=== PATIENT | female | born 1950 | race Caucasian/White ===

== ENCOUNTER 2016-09-04 18:10 | Emergency (ER) | payer MEDICARE, OTHER ==
[~2016-09-04] VITALS: Ht 160 cm; Wt 89.0 kg
[~2016-09-04 18:10] MED LIST: AMIO200T2 PO; ATOR10TA65 PO; BUDE6HFA INHALATION; CELE200C PO; DILT180C55 PO; DIVA500T7 PO; ESOM40CA PO; FLUO20CA38 PO; FURO40TA4 PO; HYDR-762 PO; KETO120S2 TOP; METF500T4 PO; MONT10TA24 PO; NIT4 SL; NITR100C73 PO; OXYB5TAB7 PO; POTA10TA37 PO; PRED20TA PO; PREG50CA PO; RIVA3CAP2 PO; VALS160T20 PO
[2016-09-04 18:16] VITALS: Ht 160 cm; Wt 89.0 kg
[2016-09-04] MEDS ORDERED: IPRATROPIUM (NEB) 0.5 MG/2.5 ML AMP NEB STA (18:40)
[2016-09-04] MEDS ORDERED: predniSONE 20 MG TAB PO STA (18:40)
[2016-09-04] MEDS ORDERED: ALBUTEROL 0.083% (NEB) 2.5 MG/3 ML AMP NEB STA (18:40)
[2016-09-04] MEDS ORDERED: AZITHROMYCIN 250 MG TAB PO ONE (19:00)
[2016-09-04] MEDS ORDERED: LEVOFLOXACIN 750 MG TABLET PO ONE (19:00)
[2016-09-04] MEDS ORDERED: ALBU18HF INHALATION (19:44)
[2016-09-04] MEDS ORDERED: PRED20TA PO (19:44)
[2016-09-04] MEDS ORDERED: LEVO750T25 PO (19:44)
[2016-09-04 19:55] VITALS: BP 116/55; PULSE 87; RESP 20; TEMP 98.1
[2016-09-04] MEDS: IBUPROFEN 800 MG TAB PO ONE ×2 (20:06→20:07)
--- NOTE | 2016-09-04 20:30 | ERD ---
ER Documentation Chief Complaint Date/Time DATE: 09/04/16 TIME: 20:27 Chief Complaint SOB,CP, HX COPD HPI Patient is a 66-year-old female with hypertension, diabetes, and COPD who presents with shortness of breath and chest pain. She has had the symptoms for 1 day. She has cough and congestion and was coughing up yellow sputum. She is speaking in full sentences. She said that she had chills today. Her primary doctor is Dr. Boggs. Review of the emergency department information exchange shows visits to 3 separate emergency departments. ROS All systems reviewed and are negative except as per history of present illness. Medications Home Meds Active Scripts Albuterol Sulfate* (Ventolin HFA*) 18 Gm Hfa.aer.ad, 2 PUFF INHALATION Q4H, #1 INHALER Prov:VASQUEZ HO MD 09/04/16 Levofloxacin* (Levaquin*) 750 Mg Tablet, 750 MG PO DAILY for 4 Days, TAB Prov:VASQUEZ HO MD 09/04/16 Prednisone* (Prednisone*) 20 Mg Tab, 60 MG PO DAILY for 4 Days, TAB Prov:VASUQEZ HO MD 09/04/16 Prednisone* (Prednisone*) 20 Mg Tab, 40 MG PO DAILY for 4 Days, TAB Prov:SAYDA CLIFFORD DO 11/17/15 Reported Medications Budesonide-Formoterol Fumarate* (Symbicort*) 160-4.5 Hfa.aer.ad, 2 PUFF INHALATION BID, #1 EACH 11/17/15 Montelukast Sodium* (Montelukast Sodium*) 10 Mg Tablet, 10 MG PO QHS, #30 TAB 11/17/15 Ketoconazole* (Ketoconazole*) 2% - 120 Ml Shampoo, 1 APPLIC TOP DAILY, EA WASH HAIR/SCALP AND RINSE OFF 11/17/15 Diltiazem Hcl (Dilt-Xr) 180 Mg Capsule.cr, 180 MG PO BID, #30 CAP 11/17/15 Nitrofurantoin Macrocrystal* (Nitrofurantoin Macrocrystal*) 100 Mg Capsule, 100 MG PO HS, CAP 11/17/15 Hydrocodone Bit-Acetaminophen* ([place]*) 10-325 Mg Tablet, 1 TAB PO Q4H Y for PAIN, TAB 02/06/15 Fluoxetine Hcl* (Prozac*) 20 Mg Capsule, 20 MG PO DAILY, CAP 02/06/15 Oxybutynin Chloride* (Ditropan*) 5 Mg Tab, 5 MG PO BID, TAB 02/06/15 Pregabalin* (Lyrica*) 50 Mg Capsule, 50 MG PO DAILY, CAP 02/06/15 Atorvastatin Calcium (Atorvastatin Calcium) 10 Mg Tab, 10 MG PO HS, TAB 02/06/15 Amiodarone Hcl* (Amiodarone Hcl*) 200 Mg Tablet, 200 MG PO DAILY, TAB 02/06/15 Divalproex Sodium* (Depakote*) 500 Mg Tablet.dr, 500 MG PO QID, TAB 02/06/15 Esomeprazole Mag Trihydrate (Nexium) 40 Mg Capsule.dr, 40 MG PO DAILY, CAP 02/06/15 Celecoxib* (Celebrex*) 200 Mg Capsule, 200 MG PO DAILY, CAP 02/06/15 Potassium Chloride* (K-Dur*) 10 Meq Tab.prt.sr, 10 MEQ PO DAILY, TAB 02/06/15 Metformin* (Glucophage*) 500 Mg Tab, 500 MG PO BID, TAB 02/06/15 Nitroglycerin* (Nitrostat*) 0.4 Mg Tab.subl, 0.4 MG SL Q5MIN Y for CHEST PAIN, BOTTLE 02/06/15 Rivastigmine Tartrate* (Exelon*) 3 Mg Capsule, 3 MG PO BID, CAP 02/06/15 Valsartan* (Diovan*) 160 Mg Tablet, 160 MG PO DAILY, TAB 02/06/15 Furosemide* (Furosemide*) 40 Mg Tablet, 40 MG PO DAILY, TAB 02/06/15 Allergies Allergies: Coded Allergies: Penicillins (Verified Allergy, Severe, 11/17/15) SEVERE HIVES carbamazepine (Verified Allergy, Severe, 11/17/15) erythromycin base (Verified Allergy, Severe, HIVES, 11/17/15) methylprednisolone (Unverified Allergy, Severe, TINGLING THROUGHOUT BODY, 11/17/15) RE-ENTERED UNCODED ALLERGY CODED phenytoin (Verified Allergy, Severe, 05/15/14) severe hives all over the body quetiapine (Verified Allergy, Severe, 05/15/14) severe rash from head to toe Uncoded Allergies: miacins (Allergy, Severe, 09/03/13) RASHES AROUND THE MOUTH PMhx/Soc History of Surgery: Yes (hysterectomy ) Anesthesia Reaction: No Hx Neurological Disorder: Yes (seizure, demenita ) Hx Respiratory Disorders: Yes (COPD, Asthma ) Hx Cardiac Disorders: Yes (HTN ) Hx Psychiatric Problems: Yes (seizure, anxiety ) Hx Miscellaneous Medical Probl: No Hx Alcohol Use: No Hx Substance Use: No Hx Tobacco Use: Yes (10-15 CIGS A DAY.) Smoking Status: Current every day smoker FmHx Family History: No diabetes Physical Exam Vitals Vital Signs Date Time Temp Pulse Resp B/P Pulse Ox O2 Delivery O2 Flow Rate FiO2 09/04/16 19:55 98.1 87 20 116/55 98 Room Air 09/04/16 19:13 72 22 95 21 09/04/16 18:16 97.4 69 18 183/91 94 Physical Exam Const: Wheezing Head: Atraumatic Eyes: Normal Conjunctiva ENT: Normal External Ears, Nose and Mouth. Neck: Full range of motion..~ No meningismus. Resp: Diffuse expiratory wheezing but is speaking in full sentences without obvious respiratory distress Cardio: Regular rate and rhythm, no murmurs Abd: Soft, non tender, non distended. Normal bowel sounds Skin: No petechiae or rashes Back: No midline or flank tenderness Ext: No cyanosis, or edema Neur: Awake and alert Psych: Normal Mood and Affect Results 24 hrs Current Medications Medications (Trade) Dose Ordered Sig/Max Route PRN Reason Start Time Stop Time Status Last Admin Dose Admin Albuterol (Proventil 0.083% (Neb)) 5 mg ONCE STAT NEB 09/04/16 18:40 09/04/16 18:42 DC 09/04/16 19:06 Ipratropium [place] (Atrovent 0.02% (Neb)) 0.5 mg ONCE STAT NEB 09/04/16 18:40 09/04/16 18:42 DC 09/04/16 19:06 Prednisone (Prednisone) 60 mg ONCE STAT PO 09/04/16 18:40 09/04/16 18:42 DC 09/04/16 18:46 Azithromycin (Zithromax) 500 mg ONCE ONCE PO 09/04/16 19:00 09/04/16 19:00 DC Levofloxacin (Levaquin) 750 mg ONCE ONCE PO 09/04/16 19:00 09/04/16 19:01 DC 09/04/16 18:53 Ibuprofen (Motrin) 800 mg ONCE ONCE PO 09/04/16 20:30 09/04/16 20:30 DC Procedures/[facility] Patient is a 66-year-old female with COPD who presents with shortness of breath and wheezing. She appears to have an acute COPD exacerbation but is speaking in full sentences and her O2 saturation is greater than 90% without oxygen. She was treated with albuterol, Atrovent, prednisone, and Levaquin. I do not believe she requires further workup or admission to the hospital at this time. This point I doubt acute coronary syndrome, pneumonia, pneumothorax, pulmonary embolism, or aortic dissection. I believe outpatient management is appropriate. She should follow-up with her primary doctor within 24-48 hours. She will be given a prescription for prednisone for 4 more days as well as Levaquin for 4 more days. She will also be given a prescription for Ventolin. Departure Diagnosis: Primary Impression: COPD exacerbation Condition: Fair Patient Instructions: Copd Flare Additional Instructions: Call your primary care doctor TOMORROW for an appointment during the next 1-2 days.See the doctor sooner or return here if your condition worsens before your appointment time. VASQUEZ HO MD Sep 04, 2016 20:30
== END 2016-09-04 20:18 | disposition home or self-care (01) ==
LOC: FTE 18:10
DX: J44.1 Chronic obstructive pulmonary disease with (acute) exacerbation (principal); I10 Essential (primary) hypertension; E11.9 Type 2 diabetes mellitus without complications; F17.210 Nicotine dependence, cigarettes, uncomplicated; Z79.84 Long term (current) use of oral hypoglycemic drugs
CPT/HCPCS: 94664; 99284; J7512

== ENCOUNTER 2016-11-04 09:06 | Emergency (ER) | payer MEDICARE, OTHER ==
[~2016-11-04] VITALS: Ht 160 cm; Wt 75.0 kg
[~2016-11-04 09:06] MED LIST changes: +ALBU18HF INHALATION; +LEVO750T25 PO
[2016-11-04 09:13] VITALS: Ht 160 cm; Wt 75.0 kg
[2016-11-04] MEDS ORDERED: LEVALBUTEROL (NEB) 1.25 MG/0.5 ML AMP INH STA (09:35)
[2016-11-04 10:00] LABS: ADD SCAN DIFF NO
[2016-11-04 10:04] LABS: BASOPHILS % 0.5 % (0.0-2.0); EOSINOPHILS # 0.1 10^3/ul (0.0-0.5); EOSINOPHILS % 1.8 % (0.0-7.0); HEMATOCRIT 42.7 % (37.0-47.0); HEMOGLOBIN 14.2 g/dl (12.0-16.0); LYMPHOCYTES # 3.2 10^3/ul (0.8-2.9); LYMPHOCYTES % 41.4 % (15.0-51.0); MEAN CORPUSCULAR HGB CONC 33.3 g/dl (32.0-37.0); MEAN CORPUSCULAR VOLUME 93.2 fl (82.0-101.0); MEAN PLATELET VOLUME 9.8 fl (7.4-10.4); MONOCYTE # 0.5 10^3/ul (0.3-0.9); MONOCYTES % 6.3 % (0.0-11.0); NEUTROPHIL # 3.7 10^3/ul (1.6-7.5); NEUTROPHILS % 49.3 % (39.0-77.0); PLATELET COUNT 218 10^3/UL (140-415); RED BLOOD COUNT 4.58 10^6/ul (4.20-5.40); RED CELL DISTRIBUTION WIDTH 13.9 % (11.5-14.5); WHITE BLOOD COUNT 7.6 10^3/ul (4.8-10.8)
--- NOTE | 2016-11-04 10:07 | ERA ---
ER Documentation Chief Complaint Date/Time DATE: 11/04/16 TIME: 10:06 Chief Complaint SOB X2 WEEKS, AUDIBLE WHEEZING NOTED. SPO2 97% ON ROOM AIR. HPI This is a 66-year-old female who has a history of COPD and atrial fibrillation who is here for COPD exacerbation sent by Dr. Estrada. She was noted to have A. fib with RVR with a heart rate of 104 in the office according to the patient. She says she has had no chest pain she has a chronic cough and has chronic breathing problems due to her COPD. Patient states she has chronic cough for the past 3 weeks. She has been on a dose of Levaquin only. She takes for nebulizer treatments a day does not take steroids because they make her vomit ROS All systems reviewed and are negative except as per history of present illness. Medications Home Meds Active Scripts Albuterol Sulfate* (Ventolin HFA*) 18 Gm Hfa.aer.ad, 2 PUFF INHALATION Q4H, #1 INHALER Prov:VASQUEZ HO MD 09/04/16 Levofloxacin* (Levaquin*) 750 Mg Tablet, 750 MG PO DAILY for 4 Days, TAB Prov:VASQUEZ HO MD 09/04/16 Prednisone* (Prednisone*) 20 Mg Tab, 60 MG PO DAILY for 4 Days, TAB Prov:VASQUEZ HO MD 09/04/16 Prednisone* (Prednisone*) 20 Mg Tab, 40 MG PO DAILY for 4 Days, TAB Prov:SAYDA CLIFFORD DO 11/17/15 Reported Medications Isosorbide Mononitrate* (Isosorbide Mononitrate*) 60 Mg Tab.er.24h, 60 MG PO DAILY, TAB 11/04/16 Ranolazine* (Ranexa*) 500 Mg Tab.sr.12h, 500 MG PO Q12, TAB 11/04/16 Budesonide-Formoterol Fumarate* (Symbicort*) 160-4.5 Hfa.aer.ad, 2 PUFF INHALATION BID, #1 EACH 11/17/15 Montelukast Sodium* (Montelukast Sodium*) 10 Mg Tablet, 10 MG PO QHS, #30 TAB 11/17/15 Nitrofurantoin Macrocrystal* (Nitrofurantoin Macrocrystal*) 100 Mg Capsule, 100 MG PO HS, CAP 11/17/15 Hydrocodone Bit-Acetaminophen* ([place]*) 10-325 Mg Tablet, 1 TAB PO Q4H Y for PAIN, TAB 02/06/15 Fluoxetine Hcl* (Prozac*) 20 Mg Capsule, 20 MG PO DAILY, CAP 02/06/15 Oxybutynin Chloride* (Ditropan*) 5 Mg Tab, 5 MG PO BID, TAB 02/06/15 Pregabalin* (Lyrica*) 50 Mg Capsule, 50 MG PO DAILY, CAP 02/06/15 Atorvastatin Calcium (Atorvastatin Calcium) 10 Mg Tab, 10 MG PO HS, TAB 02/06/15 Amiodarone Hcl* (Amiodarone Hcl*) 200 Mg Tablet, 200 MG PO DAILY, TAB 02/06/15 Esomeprazole Mag Trihydrate (Nexium) 40 Mg Capsule.dr, 40 MG PO DAILY, CAP 02/06/15 Celecoxib* (Celebrex*) 200 Mg Capsule, 200 MG PO DAILY, CAP 02/06/15 Potassium Chloride* (K-Dur*) 10 Meq Tab.prt.sr, 10 MEQ PO DAILY, TAB 02/06/15 Metformin* (Glucophage*) 500 Mg Tab, 500 MG PO BID, TAB 02/06/15 Nitroglycerin* (Nitrostat*) 0.4 Mg Tab.subl, 0.4 MG SL Q5MIN Y for CHEST PAIN, BOTTLE 02/06/15 Rivastigmine Tartrate* (Exelon*) 3 Mg Capsule, 3 MG PO BID, CAP 02/06/15 Valsartan* (Diovan*) 160 Mg Tablet, 160 MG PO DAILY, TAB 02/06/15 Furosemide* (Furosemide*) 40 Mg Tablet, 40 MG PO DAILY, TAB 02/06/15 Discontinued Reported Medications Ketoconazole* (Ketoconazole*) 2% - 120 Ml Shampoo, 1 APPLIC TOP DAILY, EA WASH HAIR/SCALP AND RINSE OFF 11/17/15 Diltiazem Hcl (Dilt-Xr) 180 Mg Capsule.cr, 180 MG PO BID, #30 CAP 11/17/15 Divalproex Sodium* (Depakote*) 500 Mg Tablet.dr, 500 MG PO QID, TAB 02/06/15 Allergies Allergies: Coded Allergies: Penicillins (Verified Allergy, Severe, 11/17/15) SEVERE HIVES carbamazepine (Verified Allergy, Severe, 11/17/15) erythromycin base (Verified Allergy, Severe, HIVES, 11/17/15) methylprednisolone (Unverified Allergy, Severe, TINGLING THROUGHOUT BODY, 11/17/15) RE-ENTERED UNCODED ALLERGY CODED phenytoin (Verified Allergy, Severe, 05/15/14) severe hives all over the body quetiapine (Verified Allergy, Severe, 05/15/14) severe rash from head to toe Uncoded Allergies: miacins (Allergy, Severe, 09/03/13) RASHES AROUND THE MOUTH PMhx/Soc History of Surgery: No Anesthesia Reaction: No Hx Neurological Disorder: No Hx Respiratory Disorders: No Hx Cardiac Disorders: No Hx Psychiatric Problems: Yes (seizure, anxiety ) Hx Miscellaneous Medical Probl: Yes (COPD) Hx Alcohol Use: No Hx Substance Use: No Hx Tobacco Use: No Smoking Status: Never smoker FmHx Family History: No coronary disease Physical Exam Vitals Vital Signs Date Time Temp Pulse Resp B/P Pulse Ox O2 Delivery O2 Flow Rate FiO2 11/04/16 10:16 75 20 96 21 11/04/16 10:01 Nasal Cannula 2 11/04/16 09:18 Nasal Cannula 11/04/16 09:13 98.1 90 24 98/59 97 Physical Exam Const: Well-developed, well-nourished Head: Atraumatic, normocephalic Eyes: Normal Conjunctiva, PERRLA, EOMI, normal sclera, no nystagmus ENT: Normal External Ears, Nose and Mouth, moist mucus membranes. Neck: Full range of motion. No meningismus, no lymphadenopathy. Resp: [No increased work of breathing, there is diffuse expiratory rhonchi and some slight wheezing with good air movement Cardio: Regular rate and rhythm, no murmurs, S1 S2 present Abd: Soft, non tender x 4, non distended. Normal bowel sounds, no guarding or rebound, no pulsitile abdominal masses or bruits Skin: No petechiae or rashes, no ecchymosis , no maculopapular rash Back: No midline or flank tenderness Ext: No cyanosis, or edema, FROM x 4, normal inspection, neurovascularly intact x 4 Neur: Awake and alert, STR 5/5 x 4, sensation intact x 4, no focal findings, cerebellum intact Psych: Normal Mood and Affect Result Diagram: 5/22/17 0930 11/04/16 0930 Results 24 hrs Laboratory Tests Test 11/04/16 09:30 White Blood Count 7.610^3/ul Red Blood Count 4.5810^6/ul Hemoglobin 14.2g/dl Hematocrit 42.7% Mean Corpuscular Volume 93.2fl Mean Corpuscular Hemoglobin 31.0pg Mean Corpuscular Hemoglobin Concent 33.3g/dl Red Cell Distribution Width 13.9% Platelet Count 48215^3/UL Mean Platelet Volume 9.8fl Neutrophils % 49.3% Lymphocytes % 41.4% Monocytes % 6.3% Eosinophils % 1.8% Basophils % 0.5% Nucleated Red Blood Cells % 0.0/100WBC Neutrophils # 3.710^3/ul Lymphocytes # 3.210^3/ul Monocytes # 0.510^3/ul Eosinophils # 0.110^3/ul Basophils # 0.010^3/ul Nucleated Red Blood Cells # 0.010^3/ul Sodium Level 142mmol/L Potassium Level 3.5mmol/L Chloride Level 103mmol/L Carbon Dioxide Level 26mmol/L Anion Gap 17 Blood Urea Nitrogen 13mg/dl Creatinine 0.58mg/dl Glucose Level 108mg/dl Calcium Level 9.0mg/dl Troponin I < 0.012ng/ml Current Medications Medications (Trade) Dose Ordered Sig/Max Route PRN Reason Start Time Stop Time Status Last Admin Dose Admin Levalbuterol (Xopenex Neb) 5 mg ONCE STAT INH 11/04/16 09:35 11/04/16 09:38 DC 11/04/16 10:04 Diphenhydramine HCl (Benadryl) 25 mg ONCE STAT IV 11/04/16 11:51 11/04/16 11:52 DC Methylprednisolone Sodium Succinate (Solu-Medrol) 125 mg ONCE STAT IV 11/04/16 11:51 11/04/16 11:52 DC Procedures/MDM EKG: Rate/Rhythm: Atrial flutter with variable AV block, left axis deviation QRS, ST, QT: NORMAL LA, QRS, QT] Impression: Atrial flutter] ROCEDURE: Chest x-ray CLINICAL INDICATION: Asthma exacerbation TECHNIQUE: Chest single view COMPARISON: 11/17/2015 FINDINGS: The heart is normal in size. The pulmonary vessels are normal in caliber. The lungs are clear. The costophrenic angles are sharp. The visualized bony thorax is unremarkable. IMPRESSION: No acute cardiopulmonary disease. RPTAT: HH .Clovis Callahan MD, Date Time Electronically viewed and signed by .Clovis Callahan MD, on 11/04/2016 11:38 .W/ CC: CHAO IBRAHIM DO Patient received nebulizer treatments that she is feeling better. Her room air sats are 98%. She has better air movement now with less wheezing and coarse lung sounds. Again she states she is feeling better. We will give her a dose of Benadryl and Solu-Medrol and discharged home Patient states she is chronically in A. fib or atrial flutter Departure Diagnosis: Primary Impression: COPD exacerbation Condition: Stable CHAO IBRAHIM DO November 04, 2016 10:07
[2016-11-04 10:27] LABS: CHLORIDE 103 mmol/L (97-110); POTASSIUM 3.5 mmol/L (3.5-5.1); SODIUM 142 mmol/L (135-144)
[2016-11-04 10:30] LABS: ANION GAP 17 (8-16); BLOOD UREA NITROGEN 13 mg/dl (7-20); CARBON DIOXIDE 26 mmol/L (21-31); CREATININE 0.58 mg/dl (0.44-1.00); GLUCOSE 108 mg/dl (70-220)
[2016-11-04 10:44] LABS: TROPONIN-I < 0.012 ng/ml (0.00-0.12)
[2016-11-04] MEDS ORDERED: RANO500T2 PO (10:57)
[2016-11-04] MEDS ORDERED: ISOS60TA PO (10:57)
--- NOTE | 2016-11-04 11:38 | RADRPT ---
PROCEDURE: Chest x-ray CLINICAL INDICATION: Asthma exacerbation TECHNIQUE: Chest single view COMPARISON: 11/17/2015 FINDINGS: The heart is normal in size. The pulmonary vessels are normal in caliber. The lungs are clear. Th e costophrenic angles are sharp. The visualized bony thorax is unremarkable. IMPRESSION: No acute cardiopulmonary disease. RPTAT: HH .Clovis Callahan MD, Date Time Electronically viewed and signed by .Clovis Callahan MD, on 11/04/2016 11:38 .W/
[2016-11-04] MEDS ORDERED: METHYLPREDNISOLONE 125 MG INJ IV STA (11:51)
[2016-11-04] MEDS ORDERED: DIPHENHYDRAMINE 50 MG INJ IV STA (11:51)
[2016-11-04] MEDS ORDERED: HYDR15SO8 PO (12:02)
[2016-11-04] MEDS ORDERED: ONDA4TAB14 PO (12:02)
[2016-11-04 12:39] VITALS: BP 125/80; PULSE 114; RESP 20; TEMP 98.3
== END 2016-11-04 12:40 | disposition home or self-care (01) ==
LOC: E/R 09:06
DX: J44.1 Chronic obstructive pulmonary disease with (acute) exacerbation (principal); R40.2142 Coma scale, eyes open, spontaneous, at arrival to emergency department; R40.2252 Coma scale, best verbal response, oriented, at arrival to emergency department; R40.2362 Coma scale, best motor response, obeys commands, at arrival to emergency department
CPT/HCPCS: 71010; 80048; 84484; 85025; 93005; 94644; 96374; 96375; 99285; J1200; J2930

== ENCOUNTER 2017-06-24 13:09 | Emergency (ER) | END 2017-06-24 18:03 | disposition left against medical advice (07) ==

== ENCOUNTER → 2017-06-25 | Outpatient (CLI) | END | disposition home or self-care (01) ==

== ENCOUNTER → 2017-08-20 | Outpatient (CLI) | END | disposition home or self-care (01) ==

== ENCOUNTER → 2017-09-05 | Outpatient (CLI) | END | disposition home or self-care (01) ==

== ENCOUNTER 2017-09-17 14:08 | Emergency (ER) | END 2017-09-17 18:58 | disposition left against medical advice (07) ==

== ENCOUNTER → 2017-11-28 | Outpatient (CLI) | END | disposition home or self-care (01) ==

== ENCOUNTER 2018-05-20 16:29 | Emergency (ER) | END 2018-05-20 17:20 | disposition left against medical advice (07) ==

== ENCOUNTER 2018-08-06 18:42 | Emergency (ER) | payer SELFPAY ==
[~2018-08-06] VITALS: Ht 160 cm; Wt 98.3 kg
[~2018-08-06 18:42] MED LIST changes: -ALBU18HF INHALATION; -AMIO200T2 PO; +AMIO200T4 PO; -ATOR10TA65 PO; -BUDE6HFA INHALATION; -CELE200C PO; +DILT120C77 PO; -DILT180C55 PO; -DIVA500T7 PO; +HYDR-3980 PO; -HYDR-762 PO; +ISOS60TA PO; -KETO120S2 TOP; -LEVO750T25 PO; +METF-849 PO; -METF500T4 PO; -NIT4 SL; +NITR0.4T39 SL; -NITR100C73 PO; -OXYB5TAB7 PO; -PRED20TA PO
[2018-08-06 18:44] VITALS: BP 129/57; PULSE 77; RESP 19; Ht 160 cm; Wt 98.3 kg
== END 2018-08-06 20:26 | disposition left against medical advice (07) ==
LOC: E/R 18:42
DX: Z53.21 Procedure and treatment not carried out due to patient leaving prior to being seen by health care provider (principal)

== ENCOUNTER 2018-08-15 14:11 | Emergency (ER) | payer MEDICARE, OTHER ==
[~2018-08-15] VITALS: Ht 157.5 cm; Wt 100.0 kg
[2018-08-15 14:23] VITALS: Ht 157.5 cm; Wt 100.0 kg
[2018-08-15 16:55] VITALS: BP 132/79; PULSE 80; RESP 18
[2018-08-15] MEDS ORDERED: ALBUTEROL 0.5% (NEB) 2.5 MG/0.5 ML AMP INH STA (16:56)
[2018-08-15] MEDS ORDERED: IPRATROPIUM (NEB) 0.5 MG/2.5 ML AMP INH STA (16:56)
[2018-08-15] MEDS ORDERED: predniSONE 20 MG TAB PO STA (16:56)
[2018-08-15] MEDS ORDERED: ACETAMINOPHEN 325 MG TAB PO ONE (17:00)
--- NOTE | 2018-08-15 17:12 | ERD ---
ER Documentation Chief Complaint Chief Complaint SOB WHEEZING. ABLE TO SPEAK FULL SENTENCES. HPI This is a 68-year-old female with a past medical history of hypertension, diabetes, CHF, atrial fibrillation, COPD, active daily tobacco use, anxiety, fibromyalgia, partial blindness, chronic vertigo who is presenting primarily for increased shortness of breath. The patient does have shortness of breath and wheezing at baseline, but her symptoms have been getting worse over the last 2-3 days. The patient endorses a congested productive cough of clear sputum. She also endorses increased dyspnea on exertion. She denies any chest pain or chest tightness or pleuritic pain. She has no nausea or vomiting. She has no lightheadedness. She has not had any diaphoresis. She does not feel sick otherwise. She does not endorse any other cold or flulike symptoms. She has not had any myalgias. She has not had any fever or chills. The patient has a secondary complaint of left knee pain after a fall this afternoon. The patient endorses chronic vertigo and dizziness for which she uses a walker. However, the patient's caregiver did not bring the walker when they went out today. The patient lost her balance and had a mechanical fall landing on her left knee. The patient was able to get up and is currently ambulatory. She does have an abrasion to the left knee and endorses tenderness with range of motion, though she is able to range the knee fully. There is no other trauma or injury. The patient did not hit her head. She did not lose consciousness. The patient has had no headache or vision changes. The patient does not endorse neck or back pain. The patient denies abdominal pain. The patient denies changes to bowel movements or urination. The patient has had no focal deficits. The patient has had no weakness or numbness or tingling to the face or extremities. ROS All systems reviewed and are negative except as per history of present illness. Medications Home Meds Reported Medications Hydrocodone/Acetaminophen (Chestnut 10-325 Tablet) 1 Each Tablet, 1 EACH PO QID PRN for PAIN, TAB 06/24/17 Diltiazem Hcl* (Cardizem CD*) 120 Mg Cap.sr.24h, 120 MG PO DAILY, #30 CAP 06/24/17 Pregabalin* (Lyrica*) 50 Mg Capsule, 50 MG PO BID, CAP 06/24/17 Amiodarone Hcl* (Amiodarone Hcl*) 200 Mg Tablet, 200 MG PO BID, #60 TAB 06/24/17 Isosorbide Mononitrate* (Isosorbide Mononitrate*) 60 Mg Tab.er.24h, 60 MG PO DAILY, TAB 11/04/16 Montelukast Sodium* (Montelukast Sodium*) 10 Mg Tablet, 10 MG PO QHS, #30 TAB 11/17/15 Fluoxetine Hcl* (Prozac*) 20 Mg Capsule, 20 MG PO DAILY, CAP 02/06/15 Esomeprazole Mag Trihydrate (Nexium) 40 Mg Capsule.dr, 40 MG PO DAILY, CAP 02/06/15 Potassium Chloride* (K-Dur*) 10 Meq Tab.prt.sr, 10 MEQ PO DAILY, TAB 02/06/15 Metformin* (Glucophage*) 500 Mg Tab, 500 MG PO BID, TAB 02/06/15 Nitroglycerin* (Nitrostat*) 0.4 Mg Tab.subl, 0.4 MG SL Q5MIN PRN for CHEST PAIN, BOTTLE 02/06/15 Rivastigmine Tartrate* (Exelon*) 3 Mg Capsule, 3 MG PO BID, CAP 02/06/15 Valsartan* (Diovan*) 160 Mg Tablet, 160 MG PO DAILY, TAB 02/06/15 Furosemide* (Furosemide*) 40 Mg Tablet, 40 MG PO DAILY, TAB 02/06/15 Allergies Allergies: Coded Allergies: Penicillins (Verified Allergy, Severe, 09/17/17) SEVERE HIVES carbamazepine (Verified Allergy, Severe, 09/17/17) erythromycin base (Verified Allergy, Severe, HIVES, 09/17/17) methylprednisolone (Unverified Allergy, Severe, TINGLING THROUGHOUT BODY, 09/17/17) RE-ENTERED UNCODED ALLERGY CODED phenytoin (Verified Allergy, Severe, 09/17/17) severe hives all over the body quetiapine (Verified Allergy, Severe, 09/17/17) severe rash from head to toe Uncoded Allergies: miacins (Allergy, Severe, 09/03/13) RASHES AROUND THE MOUTH PMhx/Soc History of Surgery: No Anesthesia Reaction: No Hx Neurological Disorder: Yes (fibromyalgia) Hx Respiratory Disorders: Yes (COPD) Hx Cardiac Disorders: Yes (Hypertension, diabetes, CHF, atrial fibrillation) Hx Psychiatric Problems: Yes (seizure, anxiety ) Hx Miscellaneous Medical Probl: Yes (Partial blindness) Hx Alcohol Use: No Hx Substance Use: No Hx Tobacco Use: No Smoking Status: Never smoker FmHx Family History: diabetes Physical Exam Vitals Vital Signs Date Temp Pulse Resp B/P (MAP) Pulse Ox O2 O2 Flow FiO2 Time Delivery Rate 08/15/18 75 20 95 21 17:09 08/15/18 80 18 132/79 97 Room Air 16:55 (96) 08/15/18 98.0 86 18 158/88 94 14:23 (111) Physical Exam Const: No apparent distress, well-developed, well-nourished Head: Normocephalic, Atraumatic Eyes: Normal Conjunctiva. Extraocular movements intact. Pupils equal, round and reactive to light ENT: Normal External Ears, Nose and Mouth. Neck: Full range of motion. No meningismus. Resp: Bilateral inspiratory and expiratory wheezes, but full breath sounds. No rales or rhonchi. No respiratory distress. Able to speak in complete sentences. Cardio: Regular rate and rhythm. No murmurs, rubs or gallops Abd: Soft, non tender, non distended. Normal bowel sounds Skin: No petechiae or rashes Back: No midline tenderness. No CVA tenderness Ext: No cyanosis, or edema. Left knee abrasion. Full range of motion to the left knee. Negative anterior drawer test. Negative Rivera test. Full range of motion to the left hip. Pelvis stable. No obvious bony deformity. Neur: Awake and alert, oriented 4. Cranial nerves intact. No facial droop. Normal strength, sensation and coordination. Psych: Normal Mood and Affect Results 24 hrs Current Medications Medications Dose Sig/Max Start Time Status Last (Trade) Ordered Route PRN Stop Time Admin Dose Reason Admin Ipratropium 1.5 mg ONCE STAT 08/15/18 DC 08/15/18 [facility] 16:56 08/15/18 17:09 (Atrovent 16:58 0.02% (Neb)) Albuterol 15 mg ONCE STAT 08/15/18 DC 08/15/18 (Proventil INH 16:56 08/15/18 17:09 0.5% (Neb)) 16:58 Prednisone 60 mg ONCE STAT 08/15/18 DC 08/15/18 (Prednisone) PO 16:56 08/15/18 17:31 16:58 650 mg ONCE ONCE 08/15/18 DC 08/15/18 Acetaminophen PO 17:00 08/15/18 17:05 (Tylenol 17:01 Tab) Procedures/MDM MDM The patient's presentation warrants further investigation. Previous medical records, if available, were reviewed. IMAGING Imaging and Radiology interpretation reviewed. CXR FINDINGS: Cardiomediastinal silhouette is stable. There is no pneumothorax or pleural effusion. There is no focal pulmonic consolidation. Right hemidiaphragm is mildly elevated. IMPRESSION: No acute pulmonary abnormality. Mildly elevated right hemidiaphragm. Electronically viewed and signed by Physician Yamil on 08/15/2018 17:47 X-ray left knee FINDINGS: There is no acute fracture or dislocation. Osseous structures are intact. There are mild osteoarthritic changes of the medial tibiofemoral and patellofemoral compartments. There is no knee joint effusion. IMPRESSION: No acute osseous abnormality. 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 Electronically viewed and signed by Physician Yamil on 08/15/2018 17:46 TREATMENT/DISPOSITION The patient presents with symptoms consistent with a mild COPD exacerbation. The patient is oxygenating normally. She has not hypoxic. She does have b ilateral wheezes, but she is not in respiratory distress and is able to speak in full sentences without issue. The patient does endorse increased cough and congestion. A mild URI is certainly a possibility as an exacerbating etiology. I do not see evidence of pneumonia. The patient is also a chronic active smoker, which would also potentiate her illness. The patient was treated with nebulized albuterol and ipratropium. She was also given a dose of prednisone in the emergency department. The patient's shortness of breath improved after treatment. The patient's chest xray does not reveal pneumonia or pneumothorax or pleural ef fusions or pulmonary edema. The patient does not have a widened mediastinum and does not have signs or symptoms concerning for thoracic aortic aneurysm or dissection. The patient does not have pneumomediastinum or signs concerning for esophageal tear or rupture. The patient has no clinical or radiographic signs of pericardial effusion or tamponade. The patient does not have pneumoperitoneum and I have decreased suspicion of viscus perforation as possible referred pain. I have low suspicion for an acute CHF exacerbation. The patient is breathing comfortably and without pleuritic pain. The patient is not on hormonal therapy. The patient has no history of clotting or bleeding disorders. The patient has no calf tenderness. The patient has had no hemoptysis. I have decreased suspicion for PE. The patient's symptoms are not consistent with acute coronary syndrome. The patient also reports left knee pain after mechanical fall. The patient reports chronic vertigo and partial blindness. The patient's symptoms are not consistent with syncope, and I do not feel the patient requires a full syncopal workup. There is a mild abrasion, but there is no clinical evidence of fracture or dislocation. The patient's knee x-ray is also unremarkable. The patient was ambulatory in the emergency department. She already has a walker at home. She does not require any additional assistive devices in the emergency department. There is no evidence of other trauma or injury. Upon reevaluation of the patient, symptoms have improved. No emergent diagnoses were identified. At this time, I feel that the patient stable for discharge. The patient was instructed to follow-up with a primary care physician in 1-3 days. The patient will be given strict precautions with which to return to the emergency department. Prescriptions: Prednisone The patient's blood pressure was elevated at greater than 120/80 while in the emergency department. The patient was otherwise stable with no evidence of hypertensive urgency or emergency. The patient does not require admission for blood pressure control. I have discussed with the patient the risks of hypertension. I have instructed the patient to return to the ER for any new or worsening symptoms including chest pain, shortness of breath, headache, blurred vision, confusion, nausea, vomiting or LOC. I have advised the patient to follow up with the primary care physician for outpatient monitoring and treatment for hypertension in 1-3 days. Disclaimer: Inadvertent spelling and grammatical errors are likely due to EHR/dictation software use and do not reflect on the overall quality of patient care. Note that the electronic time recorded on this note does not necessarily reflect the actual time of the patient encounter. Departure Diagnosis: Primary Impression: COPD exacerbation Additional Impressions: Shortness of breath Fall from ground level Abrasion of left knee Encounter type: initial encounter Qualified Codes: S80.212A - Abrasion, left knee, initial encounter Condition: Stable RICKY OBRIEN MD Aug 15, 2018 17:11
[2018-08-15] MEDS ORDERED: PRED20TA PO (18:05)
== END 2018-08-15 18:02 | disposition home or self-care (01) ==
LOC: E/R 14:11
DX: J44.1 Chronic obstructive pulmonary disease with (acute) exacerbation (principal); S80.212A Abrasion, left knee, initial encounter; E11.9 Type 2 diabetes mellitus without complications; I11.0 Hypertensive heart disease with heart failure; I50.9 Heart failure, unspecified; W18.39XA Other fall on same level, initial encounter; Y92.9 Unspecified place or not applicable
CPT/HCPCS: 71045; 73562; 94644; 99284; J7512

== ENCOUNTER 2018-09-30 09:03 | Day surgery (SDC) | payer MEDICARE, OTHER ==
[~2018-09-30] VITALS: Ht 160 cm; Wt 95.0 kg
[2018-09-30] VITALS (9 sets, daily range): BP systolic 126–148; BP diastolic 58–81; PULSE 54–78; RESP 16–25; Ht 160 cm; Wt 95.0 kg
[~2018-09-30 09:03] MED LIST changes: +PRED20TA PO
[2018-09-30] MEDS ORDERED: PREG50CA PO (10:10)
[2018-09-30] MEDS ORDERED: LORA10TA3 PO (10:10)
[2018-09-30] MEDS ORDERED: ALBU8.5H8 INH (10:11)
[2018-09-30] MEDS ORDERED: TEMA15CA6 PO (10:11)
[2018-09-30] MEDS ORDERED: DILT120C77 PO (10:12)
[2018-09-30] MEDS ORDERED: NITR0.4T39 SL (10:12)
[2018-09-30] MEDS ORDERED: RANO10002 PO (10:13)
[2018-09-30] MEDS ORDERED: VALS160T20 PO (10:14)
[2018-09-30] MEDS ORDERED: ISOS30TA67 PO (10:14)
[2018-09-30] MEDS ORDERED: FLUT16SP17 NASAL (10:15)
[2018-09-30] MEDS ORDERED: AMIO200T4 PO (10:16)
[2018-09-30] MEDS ORDERED: DIVA-75 PO (10:17)
[2018-09-30] MEDS ORDERED: FLUO20CA38 PO (10:19)
[2018-09-30] MEDS ORDERED: OXYB5TAB7 PO (10:20)
[2018-09-30] MEDS ORDERED: FURO-109 PO (10:20)
[2018-09-30] MEDS ORDERED: METF500T24 PO (10:21)
[2018-09-30] MEDS ORDERED: ATOR20TA38 PO (10:21)
[2018-09-30] MEDS ORDERED: DIAZEPAM 5 MG TAB PO ONE (10:30)
[2018-09-30] MEDS ORDERED: FAMOTIDINE 20 MG TAB PO ONE (10:30)
[2018-09-30] MEDS ORDERED: DIPHENHYDRAMINE 50 MG CAP PO ONE (10:30)
[2018-09-30] MEDS ORDERED: LIDOCAINE 1% (MDV) 20 ML INJ ONE (10:57)
[2018-09-30] MEDS ORDERED: MIDAZOLAM 1 MG/ML 2 ML INJ ONE (10:57)
[2018-09-30] MEDS ORDERED: IODIXANOL LOCM 100 ML BTL ONE (10:57)
[2018-09-30] MEDS ORDERED: FENTAnyl 50 MCG/ML VIAL ONE (10:57)
[2018-09-30] MEDS ORDERED: SOD CHLORIDE 0.9% 1,000 ML IV SCH (12:01)
--- NOTE | 2018-09-30 12:01 | SIPON ---
Date/Time of Note Date/Time of Note DATE: 09/30/18 TIME: 11:59 Operative Report Preoperative Diagnosis 1.chest pain Postoperative Diagnosis 1.non-obstructive cad Operation/Procedure Performed 1.[facility] Surgeon see signature line pastoral assistant 1.Momo Anesthesia: moderate sedation Estimated blood loss: minimal Transfusion Required none Specimen none Grafts/Implants none Complications none FLORENCIO MCCRAY Sep 30, 2018 12:01
[2018-09-30] MEDS ORDERED: AL HYDROX/MG HYDROX/SIMETH 30 ML CUP PO PRN (12:30)
[2018-09-30] MEDS ORDERED: morphine 2 MG INJ IV PRN (12:30)
[2018-09-30] MEDS ORDERED: ONDANSETRON 4 MG INJ IV PRN (12:30)
[2018-09-30] MEDS ORDERED: ACETAMINOPHEN 325 MG TAB PO PRN (12:30)
--- NOTE | 2018-09-30 17:19 | RADRPT ---
Vent Rate: 66 bpm RR Interval: 905 msec NC Interval: [id number] msec QRS Duration: 97 msec QT Interval: 430 msec QTC Interval: 452 msec P-R-T [place]: [id number] - -35 - 31 degrees Atrial fibrillation...V-rate 54- 82, irreg A-activity Left axis deviation...QRS axis (-30,-90) Abnormal R-wave progression, late transition...QRS area<0 in V5/V6 Electronically Signed By: Yonatan Tapia
--- NOTE | 2018-09-30 20:19 | CARRPT ---
DATE OF PROCEDURE: 09/30/2018 TYPE OF PROCEDURES: 1. Left heart catheterization. 2. Coronary angiography. 3. Femoral angiography. 4. Perclose closure device to right femoral artery. ATTENDING PHYSICIAN: Florencio Tapia MD REFERRING PHYSICIAN: Self-referred. INDICATION: Chest pain refractory to medical therapy, positive stress test findings for ischemia. TYPE OF ANESTHESIA: Conscious and local. BRIEF HISTORY AND HOSPITAL COURSE: Ms. Sun is a 68-year-old female with history of hypertension , dyslipidemia, atrial fibrillation, who presented with complaints of recurrent substernal chest pain and multiple admissions in the hospital. The patient subsequently underwent cardiac stress testing revealing positive ischemia. Given these findings, the patient was referred for and presents today i n order to undergo left heart catheterization to assess for possibility of significant obstructive co ronary artery disease lending to symptoms substernal chest pain and subsequently readmitted to the [facility]. DESCRIPTION OF PROCEDURE: After informed consent was obtained, the patient was brought to the [facility] cardiac labor and employment paralegal where her right groin area was prepped and draped in sterile fashion. A 2% lidocaine infiltrated into right groin area in order to achieve adequate anesthesia. Using the modified Seldinger technique, the femoral artery was cannulated and a 6-[place]oran arterial she ath was placed. A 6-[place] JL4 catheter was used to cannulate the left main coronary ostium. With c ontrast injection, multiple views of the left coronary arterial system were obtained. JL4 was remove d over a guidewire and a JR4 was used to cannulate the right coronary arterial ostium. With contrast injection, multiple views of for right coronary arterial system were obtained. JR4 was removed over a guidewire and a 6-[place] pigtail was passed down the ascending aorta and placed in LV. LVEDP was measured. A 20 mL of contrast were injected opacifying the left ventricle and pullback across the ao rtic valve to assess for significant gradient, which there was not and removed. Subsequently at this time, a final angiographic image of the right femoral arterial insertion site was then obtained reve aling the sheath to be well placed in the right common femoral artery. Subsequently, the sheath was removed. A 6-[place] Perclose device was used to seal the vessels completing procedure. There were n o noted complications. FINDINGS: Coronary angiography: Left main is 4 mm, no significant focal stenosis. Circumflex proxi maria luisa is a 3.5 mm vessel and has 20% stenosis in proximal. Circumflex continuation AV groove is a st ring-like vessel. The mid branching obtuse marginal is 3 mm with 20% to 30% stenosis. The LAD proxi maria luisa is a 3 mm vessel and there is a question if there is a true LAD versus overdeveloped septal mary jane delroy dual LAD system. The patient does have what appears to be overdeveloped septal that does go towa rds the apex, a small caliber vessel approximately 2 mm and then becomes a sub 2 mm vessel in its mid portion and stop short of the apex. In previous catheterization, it is possible it went towards the apex, so possibly may have occluded in its very distal portion. There is second vessel which a nd goes towards the apex, but in the diagonal distribution. It is a large vessel, 2.5 mm, with no si gnificant intervening stenoses and also stop short of the apex. The right coronary artery proximally is a 3 mm vessel and in its proximal portion has a 30% to 40% stenosis. Remainder of right coronary artery is free from significant focal stenoses. It gives off a 2 mm PDA and 2 mm posterolateral bra nch each with no significant focal stenoses. Left ventriculogram revealed left ventricular ejection fraction of 60% to 65% with mild to moderate a pical hypokinesis, LVEDP of 16 pre-LV gram, 20 post-LV gram. A 1+ mitral regurgitation, no significa nt aortic stenosis by gradient. TOTAL FLUOROSCOPY TIME: 2.2 minutes. TOTAL CONTRAST: 100 mL. IMPRESSION: 1. Mild to moderate nonobstructive coronary artery disease, although there is a question that patien t is having possible distal cut off in dual LAD system from previous description. 2. Preserved left ventricular systolic function. 3. High normal left heart filling pressures. 4. A 1+ mitral regurgitation. 5. No significant aortic stenosis or gradient. RECOMMENDATIONS: In light of procedure findings at this time, we would: 1. Maximize medical management. 2. Aggressive risk factor reduction. 3. The patient will be readmitted to the [facility] center for post-catheterization observatio n and continued management of symptoms with probable discharge later this afternoon. Dictated By: FLORENCIO HUITRON/BRENDA Conf#: [id number] [facility]#: [id number]
== END 2018-09-30 16:45 | disposition home or self-care (01) ==
LOC: SDS 09:03
PROVIDERS: ATTEND Internal Medicine
DX: R07.9 Chest pain, unspecified (principal); I25.10 Atherosclerotic heart disease of native coronary artery without angina pectoris; R06.02 Shortness of breath; E11.9 Type 2 diabetes mellitus without complications; I10 Essential (primary) hypertension
CPT/HCPCS: 80053; 82962; 85025; 85610; 85730; 93005; 93458; C1760; C1887; C1894; J1644; J2250; J3010; Q9967